=== PATIENT | female | born 1980 | race Caucasian/White ===

== ENCOUNTER 2019-02-01 01:11 | Outpatient (CLI) | payer OTHER, MEDICAID, SELFPAY ==
--- NOTE | 2019-02-01 13:12 | DI.RAD_ITS ---
SYMPTOMS/DIAGNOSIS: MID BACK PAIN, BILATERAL SHOULDER PAIN ID WAS VERIFIED WITH PHOTO [employer] THORACIC SPINE: The vertebral bodies are normal in height. There are minimal endplate osteophytes in the mid thoracic spine. There is no significant scoliosis. The heart size is normal. The visualized portions of the lungs are clear. IMPRESSION: Minimal degenerative changes. LEFT SHOULDER: No fracture or dislocation is seen. There are no significant degenerative changes. The AC joint appears intact. IMPRESSION: Negative left shoulder. RIGHT SHOULDER: No fracture or dislocation is seen. There are no significant degenerative changes. The AC joint is not widened. The visualized portions of the ribs are unremarkable. IMPRESSION: Negative right shoulder.
== END 2019-02-01 01:31 ==
PROVIDERS: PCP Family Medicine; Visit Provider Pediatrics Pediatric Rheumatology
DX: M25.511 Pain in right shoulder (principal); M25.512 Pain in left shoulder; M54.89 Other dorsalgia; M47.814 Spondylosis without myelopathy or radiculopathy, thoracic region
CPT/HCPCS: 72072; 73030